=== PATIENT | male | born 1995 | race African-American/Black ===

== ENCOUNTER 2022-08-28 13:13 | Inpatient (IN) | payer MEDICAID, OTHER ==
[~2022-08-28] VITALS: Ht 182.9 cm; Wt 72.2 kg
[2022-08-28 13:36] LABS: Basophils # (auto) 0 10 ^3/uL (0-0.2); Basophils % (auto) 0.6 % (0.0-2.0); Eosinophils # (auto) 0 10 ^3/uL (0-0.8); Eosinophils % (auto) 0.8 % (0.0-7.0); Hematocrit 39.9 % (41.0-53.0); Hemoglobin 13.3 g/dL (13.5-17.5); Lymphocytes # (auto) 1.7 10 ^3/uL (0.4-5.4); Mean Corpuscular Hemoglobin 28.2 pg (28.0-32.0); Mean Corpuscular Hgb Conc. 33.2 g/dL (32.0-36.0); Monocytes # (auto) 0.3 10 ^3/uL (0-1.3); Monocytes % (auto) 5.9 % (0.0-12.0); Neutrophils # (auto) 3.4 10 ^3/uL (1.6-8.6); Neutrophils % (auto) 61.7 % (37.0-80.0); Nucleated Red Blood Cells % 0.5 %; Red Cell Distribution Width 12.7 % (11.8-14.3); White Blood Cell 5.4 10^3/uL (4.4-10.8)
[2022-08-28 14:02] LABS: Albumin 4.9 g/dL (3.4-5.0); Calcium 9.5 mg/dL (8.5-10.1); Potassium 4.1 mmol/L (3.5-5.1)
[2022-08-28 14:06] LABS: BUN/Creatinine Ratio 11.2 (10.0-20.0); Bilirubin, Total 0.7 mg/dL (0.2-1.0)
[2022-08-28] MEDS ORDERED: ACETAMINOPHEN 325 MG TAB PO ONE (15:15)
[2022-08-28] MEDS ORDERED: KETOROLAC TROMETH 30 MG/ML 1ML VIAL IV ONE (15:15)
[2022-08-28] MEDS ORDERED: MORPHINE SULFATE 4 MG/ML SYR/VIAL IV ONE ×2 (17:00→19:30)
[2022-08-28] MEDS ORDERED: IOHEXOL 300 MG/ML 100ML BOTTLE IJ ONE ×2 (17:57→18:11)
[2022-08-28 18:19] LABS: Urine Bacteria NONE SEEN /hpf (None Seen); Urine Blood Negative /uL (Negative); Urine Specific Gravity 1.009 (1.001-1.035); Urine WBC <1 /hpf (0 - 3)
[2022-08-28] MEDS ORDERED: SODIUM CHLORIDE 0.9% 1,850 ML IV ONE (19:30)
[2022-08-28] MEDS ORDERED: metroNIDAZOLE 500MG/100ML 100 ML IV ONE (19:30)
[2022-08-28] MEDS ORDERED: cefTRIAXone 1GM/50ML D5W 50 ML IV ONE (19:30)
[2022-08-28] MEDS ORDERED: ONDANSETRON HCL 4 MG/2 ML VIAL IV PRN (21:45)
[2022-08-28] MEDS ORDERED: MORPHINE SULFATE INJ 2 MG/ml SYRG IV PRN (21:45)
[2022-08-28] MEDS ORDERED: D5W/SOD CHL 0.45% 1,000 ML IV SCH (21:45)
[2022-08-28] MEDS ORDERED: ACETAMINOPHEN 325 MG TAB PO PRN (21:45)
[2022-08-28] MEDS ORDERED: DOCUSATE SOD 100 MG CAP PO PRN (21:45)
[2022-08-28] MEDS: metroNIDAZOLE 500MG/100ML 100 ML IV SCH (23:02)
[2022-08-29] MEDS ORDERED: MORPHINE SULFATE INJ 2 MG/ml SYRG IV PRN
[2022-08-29] MEDS ORDERED: NITROGLYCERIN 0.4 MG SL TAB SL PRN
[2022-08-29] MEDS ORDERED: DexAMETHasone SOD PHOS 10MG/1ML VIAL INJ IV ONE (00:15)
[2022-08-29] MEDS ORDERED: ONDANSETRON HCL 4 MG/2 ML VIAL IV ONE (00:15)
[2022-08-29] MEDS ORDERED: HYDROmorphone HCL 2 MG/ML VL/or syr IV ONE (00:15)
[2022-08-29] MEDS ORDERED: diphenhdrAMINE HCL 50 MG/1 ML VL IV ONE (00:15)
[2022-08-29] MEDS: HYDROcodone-ACET 5/325MG TAB PO PRN ×4 (02:14→22:09)
[2022-08-29 06:09] LABS: Potassium 3.4 mmol/L (3.5-5.1)
[2022-08-29 06:15] LABS: Albumin 3.5 g/dL (3.4-5.0); BUN/Creatinine Ratio 6.7 (10.0-20.0); Bilirubin, Total 0.3 mg/dL (0.2-1.0); Calcium 7.9 mg/dL (8.5-10.1)
[2022-08-29 06:33] LABS: Basophils # (auto) 0 10 ^3/uL (0-0.2); Basophils % (auto) 0.5 % (0.0-2.0); Eosinophils # (auto) 0.1 10 ^3/uL (0-0.8); Eosinophils % (auto) 2.5 % (0.0-7.0); Hematocrit 33.2 % (41.0-53.0); Hemoglobin 11.3 g/dL (13.5-17.5); Lymphocytes # (auto) 1.8 10 ^3/uL (0.4-5.4); Lymphocytes % (auto) 43.9 % (10.0-50.0); Mean Corpuscular Hemoglobin 28.5 pg (28.0-32.0); Mean Corpuscular Hgb Conc. 33.9 g/dL (32.0-36.0); Monocytes # (auto) 0.3 10 ^3/uL (0-1.3); Monocytes % (auto) 7.2 % (0.0-12.0); Neutrophils # (auto) 1.9 10 ^3/uL (1.6-8.6); Neutrophils % (auto) 45.9 % (37.0-80.0); Nucleated Red Blood Cells % 0.3 %; Red Blood Cells 3.95 10^6/uL (4.5-5.90); Red Cell Distribution Width 12.3 % (11.8-14.3); White Blood Cell 4.2 10^3/uL (4.4-10.8)
[2022-08-29] MEDS ORDERED: FAMO-12 PO (07:02)
[2022-08-29] MEDS ORDERED: ONDA-144 PO (07:02)
[2022-08-29 08:00] VITALS: BP 118/72
[2022-08-29 09:00] VITALS: BP 120/77
[2022-08-29] MEDS: FAMOTIDINE (10MG/ML) 2ML VL IV SCH (12:44)
[2022-08-29] MEDS: metroNIDAZOLE 500MG/100ML 100 ML IV SCH ×3 (12:51→21:52)
[2022-08-29] MEDS ORDERED: MORPHINE SULFATE INJ 2 MG/ml SYRG IV ONE (14:45)
[2022-08-29] MEDS: cefTRIAXone 1GM/50ML D5W 50 ML IV SCH (15:23)
[2022-08-29] MEDS: D5W/SOD CHLO 0.9% 1,000 ML IV SCH (15:24)
[2022-08-29] MEDS ORDERED: GASTROGRAFIN 30 ML SOL ONE (15:58)
[2022-08-29 17:13] VITALS: BP 120/60
[2022-08-29 22:00] VITALS: BP 125/76
[2022-08-30] MEDS: MORPHINE SULFATE INJ 2 MG/ml SYRG IV PRN ×2 (02:10→09:47)
[2022-08-30 05:00] VITALS: BP 117/81
[2022-08-30] MEDS: metroNIDAZOLE 500MG/100ML 100 ML IV SCH ×3 (05:39→21:43)
[2022-08-30] MEDS: D5W/SOD CHLO 0.9% 1,000 ML IV SCH ×3 (06:50→22:45)
[2022-08-30 09:00] VITALS: BP 114/77
[2022-08-30 09:24] LABS: Basophils # (auto) 0 10 ^3/uL (0-0.2); Basophils % (auto) 0.5 % (0.0-2.0); Eosinophils # (auto) 0.1 10 ^3/uL (0-0.8); Eosinophils % (auto) 2.2 % (0.0-7.0); Hematocrit 37.6 % (41.0-53.0); Hemoglobin 12.2 g/dL (13.5-17.5); Lymphocytes # (auto) 1.3 10 ^3/uL (0.4-5.4); Lymphocytes % (auto) 27.1 % (10.0-50.0); Mean Corpuscular Hemoglobin 27.5 pg (28.0-32.0); Mean Corpuscular Hgb Conc. 32.5 g/dL (32.0-36.0); Mean Corpuscular Volume 84.6 fL (80.0-100.0); Monocytes # (auto) 0.3 10 ^3/uL (0-1.3); Neutrophils % (auto) 63.2 % (37.0-80.0); Nucleated Red Blood Cells % 0.1 %; Red Blood Cells 4.44 10^6/uL (4.5-5.90); Red Cell Distribution Width 12.9 % (11.8-14.3); White Blood Cell 4.7 10^3/uL (4.4-10.8)
[2022-08-30 09:47] LABS: Calcium 8.4 mg/dL (8.5-10.1); Potassium 3.5 mmol/L (3.5-5.1)
[2022-08-30] MEDS: FAMOTIDINE (10MG/ML) 2ML VL IV SCH (09:47)
[2022-08-30] MEDS: cefTRIAXone 1GM/50ML D5W 50 ML IV SCH (09:48)
[2022-08-30 09:50] LABS: BUN/Creatinine Ratio 7.1 (10.0-20.0); Bilirubin, Total 0.8 mg/dL (0.2-1.0); Total Protein 6.9 g/dL (6.4-8.2)
[2022-08-30 12:42] VITALS: BP 117/72
[2022-08-30 16:42] VITALS: BP 110/58
[2022-08-30] MEDS: HYDROmorphone HCL 2 MG/ML VL/or syr IV PRN (18:01)
[2022-08-30 22:00] VITALS: BP 109/68
[2022-08-31] MEDS: D5W/SOD CHLO 0.9% 1,000 ML IV SCH ×2 (03:54→14:45)
[2022-08-31] MEDS: metroNIDAZOLE 500MG/100ML 100 ML IV SCH ×3 (05:15→14:27)
[2022-08-31] MEDS: HYDROmorphone HCL 2 MG/ML VL/or syr IV PRN ×2 (05:16→12:04)
[2022-08-31 05:33] VITALS: BP 129/101
[2022-08-31 08:49] VITALS: BP 110/70
[2022-08-31] MEDS: cefTRIAXone 1GM/50ML D5W 50 ML IV SCH ×2 (09:00→12:03)
[2022-08-31] MEDS: FAMOTIDINE (10MG/ML) 2ML VL IV SCH ×2 (10:00→12:03)
[2022-08-31 12:49] VITALS: BP 119/78
[2022-08-31] MEDS ORDERED: POLYETHYLENE GLYCOL 17 GM PWDR PO ONE (15:45)
[2022-08-31 16:49] VITALS: BP 108/67
[2022-08-31 18:01] VITALS: BP 108/67
== END 2022-08-31 18:36 | disposition home or self-care (01) | DRG 48 ==
LOC: EEVIPCON 13:13 → ER 13:13 → OVERFLOW 23:47 → CENTRAL 08-29 06:32
PROVIDERS: ADMIT Nurse Practitioner Family; ATTEND Internal Medicine
DX: D36.10 Benign neoplasm of peripheral nerves and autonomic nervous system, unspecified (principal); K76.0 Fatty (change of) liver, not elsewhere classified; K83.8 Other specified diseases of biliary tract; F32.A Depression, unspecified; R10.31 Right lower quadrant pain; F43.22 Adjustment disorder with anxiety; R07.9 Chest pain, unspecified; Z80.8 Family history of malignant neoplasm of other organs or systems; Z63.4 Disappearance and death of family member
CPT/HCPCS: 36415; 71045; 71260; 74176; 74177; 76536; 76705; 80053; 81001; 82941; 83615; 83835; 84260; 84484; 85025; 93005; 96365; 96366; 96367; 96375; 96376; G0378; J0696; J1885; J3490; J7042

== ENCOUNTER 2023-09-23 00:02 | Emergency (ER) | payer SELFPAY ==
[~2023-09-23] VITALS: Ht 182.9 cm; Wt 64.8 kg
[~2023-09-23 00:02] MED LIST: FAMO-12 PO; ONDA-144 PO
[2023-09-23] MEDS ORDERED: AMOX875T4 PO (04:16)
[2023-09-23] MEDS ORDERED: ACET500T58 PO (04:16)
[2023-09-23] MEDS: LIDOCAINE 1% HCL (LOCAL ANESTH.) INJ 20ML MDV ID ONE (05:22)
[2023-09-23] MEDS: ACETAMINOPHEN 325 MG TAB PO ONE (05:39)
[2023-09-23 05:41] VITALS: BP 127/78; PULSE 68; RESP 18; TEMP 98
[2023-09-23 05:42] VITALS: O2SAT 99
== END 2023-09-23 06:37 | disposition home or self-care (01) ==
LOC: ER 00:02
DX: S01.511A Laceration without foreign body of lip, initial encounter (principal); K08.89 Other specified disorders of teeth and supporting structures; R51.9 Headache, unspecified; Z79.899 Other long term (current) drug therapy; Y04.2XXA Assault by strike against or bumped into by another person, initial encounter; Y93.89 Activity, other specified; Y92.810 Car as the place of occurrence of the external cause; Y99.8 Other external cause status
CPT/HCPCS: 12013; 70450; 70486; 99284; J2001

== ENCOUNTER 2023-10-19 18:06 | Emergency (ER) | payer MEDICAID ==
[~2023-10-19] VITALS: Ht 182.9 cm; Wt 61.8 kg
[~2023-10-19 18:06] MED LIST changes: +ACET500T58 PO; +AMOX875T4 PO
[2023-10-19 18:42] LABS: Basophils # (auto) 0 10 ^3/uL (0-0.2); Basophils % (auto) 0.3 % (0.0-2.0); Eosinophils # (auto) 0 10 ^3/uL (0-0.8); Eosinophils % (auto) 0.4 % (0.0-7.0); Hematocrit 40.8 % (41.0-53.0); Hemoglobin 13.5 g/dL (13.5-17.5); Lymphocytes # (auto) 1.1 10 ^3/uL (0.4-5.4); Mean Corpuscular Hemoglobin 28.2 pg (28.0-32.0); Mean Corpuscular Hgb Conc. 33.1 g/dL (32.0-36.0); Mean Corpuscular Volume 85.4 fL (80.0-100.0); Monocytes # (auto) 0.4 10 ^3/uL (0-1.3); Monocytes % (auto) 4.8 % (0.0-12.0); Neutrophils # (auto) 6.4 10 ^3/uL (1.6-8.6); Neutrophils % (auto) 80.5 % (37.0-80.0); Red Blood Cells 4.78 10^6/uL (4.5-5.90); Red Cell Distribution Width 12.7 % (11.8-14.3)
[2023-10-19 18:59] LABS: Albumin 4.7 g/dL (3.2-4.8); Alkaline Phosphatase 74 U/L (46-116); Anion Gap 7 (5-15); Aspartate Aminotransferase 9 U/L (13-40); BUN/Creatinine Ratio 9.4 (10.0-20.0); Blood Urea Nitrogen 10 mg/dL (9-23); Calcium 9.9 mg/dL (8.7-10.4); Carbon Dioxide 29 mmol/L (20-30); Chloride 105 mmol/L (98-107); Glucose 113 mg/dL (74-106); Magnesium 2.1 mg/dL (1.6-2.6); Potassium 3.9 mmol/L (3.5-5.1); Sodium 141 mmol/L (136-145)
[2023-10-19 19:00] LABS: Bilirubin, Total 0.9 mg/dL (0.2-1.0); Total Protein 7.3 g/dL (5.7-8.2)
[2023-10-19 19:04] LABS: Alanine Aminotransferase < 9 U/L (7-40)
[2023-10-19] MEDS: IOHEXOL 300 MG/ML 100ML BOTTLE IJ ONE (20:29)
[2023-10-20] MEDS: HYDROcodone-ACET 5/325MG TAB PO ONE (02:12)
[2023-10-20 02:23] VITALS: BP 119/78; PULSE 58; RESP 20; TEMP 97.6; O2SAT 100
[2023-10-20] MEDS ORDERED: HYDR-4798 PO (02:58)
== END 2023-10-20 02:36 | disposition home or self-care (01) ==
LOC: ER 18:06
DX: K20.90 Esophagitis, unspecified without bleeding (principal); R07.89 Other chest pain; Z79.1 Long term (current) use of non-steroidal anti-inflammatories (NSAID)
CPT/HCPCS: 36415; 71045; 71260; 80053; 83735; 83880; 84484; 85025; 93005; 99285; Q9967